=== PATIENT | male | born 1955 | race Caucasian/White ===

== ENCOUNTER 2022-08-06 10:15 | Outpatient (RCR) | payer OTHER, SELFPAY | END 2022-08-06 12:24 | disposition home or self-care (01) | PROVIDERS: PCP Family Medicine; Visit Provider Physician Assistant Medical | DX: I89.0 Lymphedema, not elsewhere classified (principal); C43.61 Malignant melanoma of right upper limb, including shoulder; Z51.89 Encounter for other specified aftercare | CPT/HCPCS: 97110; 97140; 97162; 97166; 97530; 97535; X5282 ==